=== PATIENT | male | born 1980 | race Two or more races ===

== ENCOUNTER 2023-01-15 15:39 | Emergency (ER) | payer BC ==
[2023-01-15] MEDS ORDERED: Sodium Chloride 0.9% 2.5 ML Syringe FLUSH PRN (16:01)
[2023-01-15] MEDS ORDERED: Aspirin 81 MG Tab.Chew PO ONE (16:01)
[2023-01-15] MEDS ORDERED: Sodium Chloride 0.9% 10 ML Syringe FLUSH PRN (16:01)
[2023-01-15] MEDS ORDERED: Nitroglycerin 0.4 MG Tab.SL SL PRN (16:01)
[2023-01-15] MEDS ORDERED: Diazepam 2 MG Tab PO ONE (16:26)
[2023-01-15 16:29] LABS: BLOOD UREA NITROGEN,BUN 15 mg/dL (7.0-18.0); CARBON DIOXIDE,CO2 29.1 mmol/L (21.0-32.0); CHLORIDE,CL 95 mmol/L (98-107); GLUCOSE RANDOM 245 mg/dL (74-106); POTASSIUM,K 3.9 mmol/L (3.5-5.1); SODIUM,NA 136 mmol/L (136-148)
[2023-01-15 16:30] LABS: ESTIMATED GFR 109 mL/min (>60)
[2023-01-15] MEDS ORDERED: Metoprolol Succinate 25 MG Tab.ER PO ONE (17:13)
[2023-01-15] MEDS ORDERED: Iopamidol 755 MG/ML 500 ML Multipack Bottle IVPUSH ONE (17:13)
[2023-01-15 17:51] LABS: HEMOGLOBIN A1C 10.3 %
== END 2023-01-15 18:18 | disposition home or self-care (01) ==
LOC: MW.ED 15:39
DX: R07.2 Precordial pain (principal); I16.1 Hypertensive emergency; I11.9 Hypertensive heart disease without heart failure; E11.9 Type 2 diabetes mellitus without complications; E78.5 Hyperlipidemia, unspecified; K76.89 Other specified diseases of liver; Z79.82 Long term (current) use of aspirin; Z79.899 Other long term (current) drug therapy; Z79.84 Long term (current) use of oral hypoglycemic drugs
CPT/HCPCS: 36415; 71045; 71275; 80053; 80061; 80305; 80307; 83036; 83880; 84443; 84484; 85025; 93005; 99285; A9270; J3490; Q9967

== ENCOUNTER 2023-01-24 04:37 | Emergency (ER) | payer BC ==
[2023-01-24] MEDS ORDERED: Sodium Chloride 0.9% 2.5 ML Syringe FLUSH PRN (04:51)
[2023-01-24] MEDS ORDERED: Aspirin 81 MG Tab.Chew PO ONE (04:51)
[2023-01-24] MEDS ORDERED: Sodium Chloride 0.9% 10 ML Syringe FLUSH PRN (04:51)
[2023-01-24] MEDS ORDERED: Sodium Chloride 0.9% 1,000 ML IV ONE (04:51)
[2023-01-24] MEDS: Nitroglycerin 0.4 MG Tab.SL SL PRN ×3 (04:59→05:14)
[2023-01-24 05:28] LABS: CARBON DIOXIDE,CO2 30.5 mmol/L (21.0-32.0); POTASSIUM,K 3.5 mmol/L (3.5-5.1)
[2023-01-24] MEDS ORDERED: Iopamidol 755 MG/ML 500 ML Multipack Bottle IVPUSH STA (06:00)
[2023-01-24] MEDS ORDERED: Magnesium Sulfate (4.06 MEQ/ML) 5 GM/10 ML SDV IV SCH (06:00)
[2023-01-24] MEDS ORDERED: Magnesium Sulfate/Water 2 GM in Premix Bag 1 BAG IV ONE (06:14)
== END 2023-01-24 09:50 | disposition home or self-care (01) ==
LOC: MW.ED 04:37
DX: R07.89 Other chest pain (principal); Z79.82 Long term (current) use of aspirin
CPT/HCPCS: 36415; 71275; 80053; 80305; 80307; 83735; 84100; 84484; 85025; 85610; 93005; 96361; 96365; 96366; 99285; A9270; J3475; J7030; Q9967; 93010; 99284